=== PATIENT | male | born 1960 | race Caucasian/White ===

== ENCOUNTER 2018-01-14 07:57 | Emergency (ER) | payer OTHER, BC ==
[~2018-01-14] VITALS: Ht 172.7 cm; Wt 85.0 kg
[2018-01-14] MEDS ORDERED: COLACE100 MG PO (11:44)
[2018-01-14] MEDS ORDERED: MIRALAX17 GM PO (11:44)
[2018-01-14 12:07] VITALS: BP 143/96
== END 2018-01-14 12:09 | disposition home or self-care (01) ==
LOC: EME 07:57
DX: K59.00 Constipation, unspecified (principal); G83.9 Paralytic syndrome, unspecified; Z99.3 Dependence on wheelchair; Z87.820 Personal history of traumatic brain injury
CPT/HCPCS: 74176; 99281; 99284